=== PATIENT | male | born 1985 | race Caucasian/White ===

== ENCOUNTER 2016-11-22 19:34 | Emergency (ER) | payer OTHER ==
[~2016-11-22] VITALS: Ht 180.3 cm; Wt 97.6 kg
[2016-11-22 19:38] VITALS: TEMP 36.7; Ht 180.3 cm; Wt 97.6 kg
[2016-11-22] MEDS ORDERED: BUPR10DI TOP (19:53)
[2016-11-22] MEDS ORDERED: FLUO40CA8 PO (19:53)
[2016-11-22] MEDS ORDERED: AMPH30TA2 PO (19:53)
[2016-11-22] MEDS ORDERED: GABA800T PO (19:53)
[2016-11-22] MEDS ORDERED: AMPH20TA2 PO (19:53)
[2016-11-22] MEDS ORDERED: PANT40TA PO (19:53)
[2016-11-22] MEDS ORDERED: IBUPROFEN 600 MG TAB PO STA (20:26)
[2016-11-22] MEDS ORDERED: CEPH500C PO (21:38)
--- NOTE | 2016-11-22 21:39 | EMERGENCY ROOM VISIT NOTE ---
ED Visit Note First contact with patient: 19:55 CHIEF COMPLAINT: Hand injury HISTORY OF PRESENT ILLNESS: This 31-year-old male patient presented to the emergency department sent from [facility] urgent [facility] after they injured the right hand while at work today. Patient states his right hand was crushed between a 2 x 4 and the chute on a concrete truck, puncturing the palm of his right hand The patient rates the pain as throbbing and 7/10. The patient denies any numbness or tingling. The patient does not have injuries to the wrist. The patient has not had a previous fracture to this hand. He denies any other associated injuries. Patient states his tetanus was updated and his wound was irrigated or several minutes at [facility] earlier today. The patient states he was sent here by [facility] with concern for possible foreign body. REVIEW OF SYSTEMS: A 6 system review of systems was completed with positives and pertinent negatives in the HPI. ALLERGIES: See chart MEDICATIONS: See chart PMH: See chart SOCIAL HISTORY: See chart PHYSICAL EXAM: Vital Signs: Reviewed Nurse's notes, vital signs stable. GENERAL : Pleasant and cooperative, in no acute distress, well-developed, well- nourished. MUSCULOSKELETAL: There is no deformity of the right hand. There is tenderness over the palmar aspect of the right hand with moderate swelling and deep puncture laceration. The wound was explored externally, no visible foreign body or obvious dirt in the wound. Normal thumb opposition to all fingers. [employer] strength 4/5. Capillary refill less than 2 seconds. No tenderness of the fingers or wrist. Full range of motion of the wrist. No snuff box tenderness. Radial pulse 2+. NEURO: Alert and oriented to person, place, and time. Normal sensation to light and sharp touch. EMERGENCY DEPARTMENT COURSE: I examined the patient. An x-ray of the right hand from [facility] was reviewed by myself and I do not appreciate any fractures or obvious radiopaque foreign bodies. The patient's wound was cleansed, dressed with bacitracin and a sterile bandage. Given the dirty nature of patient's wound, will cover with Keflex prophylactically, first dose given in the ED. The patient was discharged home in good condition. Medication Reconciliation: I attest that I have personally reviewed the patient' s current medication list. Blood pressure screening: The patient was found to have an elevated blood pressure and was referred to their primary doctor for recheck and further treatment. Current/Historical Medications Scheduled Amphetamine-Dextroamphetamine 20MG (Adderall 20MG), 20 MG PO DAILY UD Amphetamine-Dextroamphetamine 30MG (Adderall 30MG), 30 MG PO BID Buprenorphine (Butrans), 1 PATCH TOP WK Cephalexin Monohydrate (Keflex), 500 MG PO QID Fluoxetine (Prozac), 40 MG PO DAILY Gabapentin (Neurontin), 800 MG PO TID Pantoprazole (Protonix), 40 MG PO DAILY Allergies Coded Allergies: No Known Allergies (Unverified , 11/22/16) Vital Signs Date Time Temp Pulse Resp B/P (MAP) Pulse Ox O2 Delivery O2 Flow Rate FiO2 11/22/16 22:32 76 16 132/80 98 11/22/16 19:38 36.7 84 18 140/85 96 Room Air Medications Administered Medications (Trade) Dose Ordered Sig/Teddy Route Start Time Stop Time Status Last Admin Dose Admin Ibuprofen (Motrin Tab) 600 mg NOW STAT PO 11/22/16 20:26 11/22/16 20:27 DC 11/22/16 20:41 600 MG Cephalexin Monohydrate (Keflex Cap) 500 mg NOW ONCE PO 11/22/16 21:45 11/22/16 21:46 DC 11/22/16 21:45 500 MG Departure Information Impression Primary Impression: Puncture wound of hand, right Dispostion Home / Self-Care Condition GOOD Prescriptions Cephalexin Monohydrate (Keflex) 500 Mg Cap 500 MG PO QID for 5 Days, #20 CAP Prov: Deb Boland CRNP 11/22/16 Referrals BRENDON AQUINO (PCP) Patient Instructions My [facility] Additional Instructions Ice and elevation for 24-48 hrs. Ibuprofen 600 mg and Tylenol 1000 mg every 6 hrs as needed for pain. Take the Keflex 4 times a day for the next 5 days as prescribed help prevent infection. Soak the hand in warm salt water solution 2-3 times a day for the next 2 days. Clean wound and cover with a clean Band-Aid. Follow-up with your family doctor in 2-3 days to have the wound rechecked. Please return to the ER for any signs of infection including increased swelling , redness, severe pain, pus drainage from the wound, red streaking up the hand or arm, fever/chills/feeling ill, or any other concerns. Problem Qualifiers Primary Impression: Puncture wound of hand, right Encounter type: initial encounter Foreign body presence: unspecified Qualified Codes: S61.431A - Puncture wound without foreign body of right hand, initial encounter
[2016-11-22] MEDS ORDERED: CEPHALEXIN MONOHYDRATE 250 MG CAP PO ONE (21:45)
[2016-11-22 22:32] VITALS: BP 132/80; PULSE 76; O2SAT 98
== END 2016-11-22 22:33 | disposition home or self-care (01) ==
LOC: C.EDB 19:36 → C.EDD 22:33
DX: S61.431A Puncture wound without foreign body of right hand, initial encounter (principal); W23.0XXA Caught, crushed, jammed, or pinched between moving objects, initial encounter; Y92.89 Other specified places as the place of occurrence of the external cause; Y99.0 Civilian activity done for income or pay